=== PATIENT | male | born 1940 | race Caucasian/White ===

== ENCOUNTER 2018-08-18 06:36 | Observation (INO) | payer OTHER, BC ==
[~2018-08-18] VITALS: Ht 180.3 cm; Wt 112.9 kg
[2018-08-18] VITALS (10 sets, daily range): BP systolic 142–190; BP diastolic 80–105
[~2018-08-18 06:36] MED LIST: ACCURETIC 20-11 EACH; ALLOPURINOL 30300 M2; ASPIRIN EC325 MG PO; ASPIRIN EC81 M1; CALCIUM 500 +1 EAC5; COREG6.25 MG PO; COUMADIN 5 MG TA5 M1; FISH OIL 1,001000 M1 PO; FOSAMAX 70 MG T70 M1; LIPITOR40 MG PO; LISINOPRIL10 MG PO; METFORMIN HCL500 MG PO; MULTIVITAMINS1 EAC7 PO; NORCO 5-325 TA1 EACH PO; ODORLESS GARLI500 MG; PEPCID20 MG PO; PERCOCET PO; POTASSIUM20 PO; POTASSIUM99 M1; PRADAXA150 MG PO; PRADAXA75 MG PO; SAW PALMETTO 1160 MG PO; SAW PALMETTO C1 EACH PO; SAW PALMETTO160 M1; SORINE 80 MG TA80 M1 PO; SOTALOL80 MG PO; TOPROL XL50 MG; VITCB500GO
[2018-08-18 07:42] LABS: CALCIUM 8.9 mg/dL (8.5-10.1); POTASSIUM 4.1 mmol/L (3.5-5.1)
[2018-08-18 07:49] LABS: ALBUMIN 3.4 g/dL (3.4-5.0); INR 1.1; PROTIME 11.2 Seconds (9.3-11.4); TOTAL BILIRUBIN 0.9 mg/dL (<0.1-1.0); TOTAL PROTEIN 7.4 g/dL (6.4-8.2)
[2018-08-18 07:53] LABS: HEMOGLOBIN 18.7 gm/dL (14.0-18.0); MCHC 33.4 g/dL (28.0-37.0); MCV 95.9 fL (80.0-100.0); RBC 5.84 mil/uL (4.50-6.00); WBC 7.7 thou/uL (4.0-11.0)
[2018-08-18] MEDS ORDERED: LIPITOR40 MG PO (08:07)
[2018-08-18] MEDS ORDERED: PRADAXA150 MG PO (08:09)
[2018-08-18 09:57] LABS: ABSOLUTE NEUTROPHILS 4.3 thou/uL (1.4-8.2)
[2018-08-18 09:58] LABS: PLATELET COUNT 104 thou/uL (150-400); PLATELET ESTIMATE NORMAL
--- NOTE | 2018-08-18 18:07 | NUR ---
ASSUMED CARE AT 1330, ALERT AND ORIENTED X4. RECIVED PATIENT FROM CATH. RT GRION D/C/I AND SENSATION INTACT. POC INITIATED. WILL CONTINUE TO MONITOR.
[2018-08-19 00:32] VITALS: BP 131/83
[2018-08-19 03:59] VITALS: BP 137/85
--- NOTE | 2018-08-19 07:44 | NUR ---
ASSESSMENTS CHARTED. PATIENT OFF BEDREST DURING SHIFT POST ABLATION. PATIENT IS HAVING RETENSION PROBLEM POST ALLEN REMOVAL. PATIENT STATUS UPGRADED TO AD YE[place] DURING SHIFT. YELLOWS WERE REMOVED. PLAN IS FOR PATIENT TO RETURN HOME TODAY.
[2018-08-19 08:09] VITALS: BP 144/98
[2018-08-19] MEDS ORDERED: COLCHICINE0.6 M1 PO (10:40)
[2018-08-19] MEDS ORDERED: LASIX 40 MG TAB40 M1 PO (10:40)
[2018-08-19] MEDS ORDERED: PRADAXA150 MG PO (10:42)
[2018-08-19 10:48] VITALS: BP 144/98
--- NOTE | 2018-08-19 11:09 | NUR ---
ASSUMED CARE AT SHIFT CHANGE, ALERT AND ORIENTED X4. DENIES ANY CP OR DISCOMFORT SR WITH PVC's ON THE MONITOR AND VSS. DISCHARGE AND MEDICATION INSTRUCTION GIVEN TO PATIENT AND SPOUSE AND THEY VERBALIZED UNDERSTANDING. AND PATIENT DISCHARGED HOME.
--- NOTE | 2018-08-21 14:15 | D ---
[facility] [place] [address] DISCHARGE SUMMARY Name: ELYABIGAIL ARCE Room #: 210-[facility] M.RAquiles#: [id number] Admission: 08/18/18 ������������������ Attend Phys: Jonny Roach MD Discharge: 08/19/18 ������������������ Date of : 38 Report #: [id number] THIS REPORT FOR: //name// CC: Evelyne Freeman DISCHARGE DIAGNOSES: 1. Atrial fibrillation. 2. Sick sinus syndrome. PROCEDURES PERFORMED: AFib ablation. HISTORY OF PRESENT ILLNESS: The patient is a 77-year-old with a history of recurrent atrial fibrillation despite antiarrhythmic drugs. He was here for an ablation. He underwent successful AFib ablation with isolation of all four pulmonary veins with no procedure-related complications. HOSPITAL COURSE: The patient was monitored in the CCU overnight and did well. On the day of discharge, he denied any chest pain, shortness of breath, PND or orthopnea. PHYSICAL EXAMINATION: GENERAL: He was in no acute distress. HEART: Regular rate and rhythm with no murmurs, rubs, gallops. LUNGS: Clear to auscultation bilaterally. ABDOMEN: Soft, nontender, nondistended. EXTREMITIES: No clubbing, cyanosis, edema. On telemetry, he remained in sinus rhythm throughout the evening. As such, he was deemed stable for discharge home. Discharge instructions were reviewed, and he will follow up in 7-10 days. He will be discharged on his same antiarrhythmic drugs and anticoagulation regimen. ��������������������������������������������� <ELECTRONICALLY SIGNED> ���������������������������������������� By: Jonny Roach MD ��������������������������������������������� 08/21/18 1415 [id number] Jonny Roach MD /nt
--- NOTE | 2018-08-21 14:15 | P ---
[facility] [place] [address] PROCEDURE REPORT Name: ELYABIGAIL ARCE Room #: 210-P [facility] M.Oren#: [id number] Admission: 08/18/18 ������������������ Attend Phys: Jonny Roach MD Discharge: 08/19/18 ������������������ Date of : 38 Report #: [id number] THIS REPORT FOR: //name// CC: Evelyne Freeman PREOPERATIVE DIAGNOSIS: Paroxysmal atrial fibrillation. POSTOPERATIVE DIAGNOSIS: Paroxysmal atrial fibrillation. HISTORY: The patient is a 77-year-old with history of paroxysmal AFib as well as sick sinus syndrome, status post Biotronik pacemaker implantation, who has had recurrent AFib despite antiarrhythmic drug therapy. He is here for ablation. PROCEDURES PERFORMED: 1. Atrial fibrillation ablation, CPT code 91948. 2. 3D mapping, CPT code 33926. 3. Intracardiac echo, CPT code 23673. 4. Preprocedure old pacemaker programming, CPT code 47103. 5. Postprocedure pacemaker reprogramming, CPT code 40231. ANESTHESIA: The patient underwent general anesthesia with no anesthesia complications. PROCEDURE DESCRIPTION: The patient underwent informed consent. We discussed the details of the procedure including the risks, which include but not limited to bleeding, vascular damage, cardiac perforation, stroke, HI as well as damage to the prior lead implanted pacemaker. He understood these risks and is willing to proceed. The patient was brought to the EP laboratory in fasting and sedated state and prepped and draped in a sterile fashion. I injected lidocaine at the right groin region, obtained access to the right femoral vein x 3, placing an 8, 9 and 7-Emirati short sheath using the modified Seldinger technique. Next, a decapolar catheter was placed easily in the coronary sinus and ICE catheter was placed in the right atrium. At baseline, the patient had evidence of a left superior, left inferior and two right-sided veins. Of note, the left superior vessel had a very anterior takeoff, essentially tracking along with the left atrial appendage, which made isolation of this vein somewhat more challenging. At baseline, the patient's pacemaker was programmed to the DDD mode and rate response was turned off. The patient was in sinus rhythm with sinus cycle length of 1000 milliseconds, TN interval 200 milliseconds, QRS duration 90 milliseconds, QT interval 450 milliseconds. Next, the patient was systemically heparinized and a transseptal was performed using an SL1 sheath and a [facility] [address] [place] [address] PROCEDURE REPORT Name: GRAVESABIGAIL ARCE Room #: 210-P [facility] Yeyo Hughes#: [id number] Admission: 08/18/18 ������������������ Attend Phys: Jonny Roach MD Discharge: 08/19/18 ������������������ Date of : 38 Report #: [id number] needle. This was straightforward. Once in the left atrium, I used a Lasso catheter and created a detailed 3D geometry of the pulmonary veins and left atrium. I then exchanged the SL1 sheath for the Cryo sheath and the cryoablation balloon. I performed a total of 4 freezes in the left superior pulmonary vein and it did not appear that it had isolated. I then turned my attention to the left inferior pulmonary vein. I performed a 300-second freeze and the vein isolated at 200 seconds. I then did an additional 4-minute freeze in this vein. I turned my attention to the right superior pulmonary vein. This vein isolated during the first freeze and a single 4-minute freeze was performed. The right inferior pulmonary vein underwent a 4-minute freeze, which appeared to isolate the vein and I performed an additional freeze of 3 minutes duration. I then re-interrogated all the veins and all veins were isolated except for the left superior pulmonary vein. I decided to perform a contrast injection in the left superior pulmonary vein to get a better idea of my seal as previous freezes had only utilized pressure monitoring. It appeared that I got a good seal and therefore, I came on and performed a 4-minute freeze with good temps. The maximal minus temperature was -43 degrees. After performing this free freeze, the vein was now clearly isolated. As such, the procedure was concluded. Using intracardiac ultrasound, I verified there was no pericardial effusion. The patient remained in sinus rhythm and there was no atrial flutter or other arrhythmias that were induced during the procedure. As such, the patient received systemic protamine and once ACT was within acceptable range, catheters and sheaths were pulled. A [id number] suture was placed in his groin to improve hemostasis. His pacemaker was programmed back to its nominal settings. CONCLUSIONS: 1. Successful AFib ablation with isolation of the pulmonary veins. 2. Successful pacemaker reprogramming. ��������������������������������������������� <ELECTRONICALLY SIGNED> ���������������������������������������� By: Jonny Roach MD ��������������������������������������������� 08/21/18 1415 [id number] Jonny Roach MD /nt
== END 2018-08-19 11:24 | disposition home or self-care (01) ==
LOC: CATH 06:36 → 2N 13:10 → CATH 14:17 → ENTRNSPT 08-19 10:59 → EDTRNSPTSTS 08-19 11:02 → 2N 08-19 11:24
PROVIDERS: ADMIT Internal Medicine Cardiovascular Disease
DX: I48.0 Paroxysmal atrial fibrillation (principal); I49.5 Sick sinus syndrome
CPT/HCPCS: 62110; 62900; 70005

== ENCOUNTER → 2020-09-15 | Outpatient (CLI) | payer OTHER, BC ==
[~2020-09-15] MED LIST changes: +ASA81BEC PO; +COLCHICINE0.6 M1 PO; +COZAAR 25 MG TA25 M2 PO; +FISH OIL 1,0001 EAC9 PO; +KLOR-CON 10 ER10 MEQ PO; +LASIX 40 MG TAB40 M1 PO; +LASIX 40 MG TAB40 MG PO; +MITIGARE0.6 MG PO; +PLAVIX 75 MG TA75 MG PO; +SOTALOL160 MG PO
== END ==
LOC: SJCVC 14:09
PROVIDERS: ATTEND Internal Medicine Cardiovascular Disease
DX: R94.31 Abnormal electrocardiogram [ECG] [EKG] (principal); I45.4 Nonspecific intraventricular block; I48.0 Paroxysmal atrial fibrillation; I42.8 Other cardiomyopathies; I49.5 Sick sinus syndrome; E66.01 Morbid (severe) obesity due to excess calories; I25.10 Atherosclerotic heart disease of native coronary artery without angina pectoris; E78.5 Hyperlipidemia, unspecified; Z72.89 Other problems related to lifestyle; Z68.34 Body mass index [BMI] 34.0-34.9, adult; Z86.73 Personal history of transient ischemic attack (TIA), and cerebral infarction without residual deficits; Z79.899 Other long term (current) drug therapy; Z95.0 Presence of cardiac pacemaker